=== PATIENT | female | born 1965 | race Caucasian/White ===

== ENCOUNTER 2018-12-22 20:55 | Emergency (ER) | payer OTHER ==
[~2018-12-22] VITALS: Wt 80.7 kg
[~2018-12-22 20:55] MED LIST: ALBU8.5H8 INH; FER325 PO; LORA10TA3 PO; MEDR2.5T PO
[2018-12-22] MEDS ORDERED: ONDANSETRON 4 MG INJ IV STA (21:12)
[2018-12-22] MEDS ORDERED: SOD CHLORIDE 0.9% 1,000 ML IV STA (21:12)
[2018-12-22] MEDS ORDERED: KETOROLAC 30 MG INJ IV STA (21:12)
[2018-12-22] MEDS ORDERED: IBUP800T48 PO (22:30)
[2018-12-22] MEDS ORDERED: ONDA4TAB14 PO (22:30)
--- NOTE | 2018-12-22 22:40 | ERD ---
ER Documentation Chief Complaint Chief Complaint FEVER/ VOMITING X'S 3 DAYS HPI 53-year-old female. Patient presents to the emergency with 3 days of symptoms that include generalized malaise, nonbloody nonbilious emesis, subjective fevers. She denies any cough congestion, no headache no rash no neck stiffness, no abdominal pain dysuria urgency or frequency. No recent travel sick contacts or antibiotics. During the patient's encounter translation services were utilized Language: Urdu Source: In person ROS All systems reviewed and are negative except as per history of present illness. Medications Home Meds Active Scripts Ibuprofen* (Motrin*) 800 Mg Tab, 800 MG PO Q6H PRN for PAIN AND OR ELEVATED TEMP, #30 TAB Prov:BAIRON MASON MD 12/22/18 Ondansetron (Ondansetron Odt) 4 Mg Tab.rapdis, 4 MG PO Q6H PRN for NAUSEA AND/OR VOMITING, #20 TAB Prov:BAIRON MASON MD 12/22/18 Medroxyprogesterone Acetate* (Provera*) 2.5 Mg Tablet, 2.5 MG PO DAILY for 30 Days, TAB Prov:DANIELA WILLIAMSON NP 08/17/16 Reported Medications Albuterol Sulfate* (Proair HFA*) 8.5 Gm Hfa.aer.ad, 2 PUFF INH Q4, #1 INHALER 08/16/16 Loratadine* (Loratadine*) 10 Mg Tablet, 10 MG PO DAILY, #30 TAB 08/16/16 Ferrous Sulfate* (Ferrous Sulfate*) 325 Mg Tabec, 325 MG PO DAILY, TAB 03/15/15 Allergies Allergies: Coded Allergies: No Known Allergy (Unverified , 08/16/16) PMhx/Soc History of Surgery: No Anesthesia Reaction: No Hx Neurological Disorder: No Hx Respiratory Disorders: Yes (asthma) Hx Cardiac Disorders: No Hx Psychiatric Problems: No Hx Miscellaneous Medical Probl: Yes (anemia) Hx Alcohol Use: No Hx Substance Use: No Hx Tobacco Use: No FmHx Family History: No diabetes Physical Exam Vitals Vital Signs Date Temp Pulse Resp B/P (MAP) Pulse Ox O2 O2 Flow FiO2 Time Delivery Rate 12/22/18 100.6 108 12 128/70 99 Room Air 21:17 (89) 12/22/18 101.1 114 18 153/67 98 20:58 (95) Physical Exam General: Well developed, well nourished, no acute distress Head: Normocephalic, atraumatic. Eyes: Pupils equally reactive, EOM intact ENT: Moist mucous membranes Neck: Supple, no lymphadenopathy Respiratory: Lungs clear bilaterally, no distress Cardiovascular: tachy, no murmurs, rubs, or gallops Abdominal: Soft, non-tender, non-distended, no peritoneal signs, no tenderness to McBurney's point : Deferred MSK: No edema, no unilateral swelling, 5/5 strength Neurologic: Alert and oriented, moving all extremities, normal speech, no focal weakness, no cerebellar signs, no meningismus Skin: No rash Psych: Normal mood Result Diagram: 12/22/18212012/22/182120 Results 24 hrs Laboratory Tests Test 12/22/18 21:21 White Blood Count 10.5 10^3/ul Red Blood Count 4.37 10^6/ul Hemoglobin 11.1 g/dl Hematocrit 33.6 % Mean Corpuscular Volume 76.9 fl Mean Corpuscular Hemoglobin 25.4 pg Mean Corpuscular Hemoglobin Concent 33.0 g/dl Red Cell Distribution Width 13.7 % Platelet Count 205 10^3/UL Mean Platelet Volume 10.6 fl Immature Granulocytes % 0.500 % Neutrophils % 88.2 % Lymphocytes % 4.4 % Monocytes % 6.5 % Eosinophils % 0.0 % Basophils % 0.4 % Nucleated Red Blood Cells % 0.0 /100WBC Immature Granulocytes # 0.050 10^3/ul Neutrophils # 9.2 10^3/ul Lymphocytes # 0.5 10^3/ul Monocytes # 0.7 10^3/ul Eosinophils # 0.0 10^3/ul Basophils # 0.0 10^3/ul Nucleated Red Blood Cells # 0.0 10^3/ul Sodium Level 134 mmol/L Potassium Level 3.4 mmol/L Chloride Level 99 mmol/L Carbon Dioxide Level 23 mmol/L Anion Gap 12 Blood Urea Nitrogen 12 mg/dl Creatinine 0.93 mg/dl Est Glomerular Filtrat Rate mL/min > 60 mL/min Glucose Level 160 mg/dl Calcium Level 9.1 mg/dl Current Medications Medications Dose Sig/Tip Start Time Status Last (Trade) Ordered Route PRN Stop Time Admin Dose Reason Admin Sodium 1,000 ml @ Q1H STAT 12/22/18 DC 12/22/18 Chloride 1,000 mls/hr IV 21:12 21:31 12/22/18 22:11 Ondansetron 4 mg ONCE STAT 12/22/18 DC 12/22/18 HCl (Zofran IV 21:12 21:31 Inj) 12/22/18 21:13 Ketorolac 30 mg ONCE STAT 12/22/18 DC 12/22/18 Tromethamine IV 21:12 21:31 (Toradol) 12/22/18 21:13 Procedures/MDM LAB INTERPRETATION: I reviewed the laboratory testing and it shows no evidence of acute process MEDICAL DECISION MAKING: The patient's clinical exam and presentation are very consistent with viral syndrome. The patient exhibits no focal signs or symptoms concerning for serious bacterial infection, pneumonia, acute intra-abdominal process or meningitis. Basic blood work would be appropriate to rule out anemia given the patient's history but low concern for this as well. The patient is ambulatory extremely well-appearing in the emergency room setting. ER COURSE: * Patient received IV fluids, symptom control medication and antipyretics with improved symptomatology and improved vital signs. * At this point I feel the patient can be safely discharged home. The patient was advised of return precautions and symptom control medication will be most appropriate. CONSULTATION: None DISPOSITION PLAN: The patient does not have an identifiable emergent medical condition that warrants inpatient hospitalization at this time. The patient is deemed safe for discharge with outpatient follow-up. We discussed follow up with the patient's primary care doctor within 24 to 48 hours as needed. We also discussed return to the emergency room for worsening symptoms or worsening condition. Outpatient referral: None required Discharge Medications: Motrin and Zofran Departure Diagnosis: Primary Impression: Viral syndrome Additional Impression: Nausea and vomiting Vomiting type: unspecified Vomiting Intractability: non-intractable Qualified Codes: R11.2 - Nausea with vomiting, unspecified Condition: Stable Patient Instructions: Nausea and Vomiting-Adult Additional Instructions: Llame al doctor gabino valadez (Referral Sources) MAANA y kj pelon VERONICA PARA DENTRO DE PELON SEMANA. Dgale a la secretaria que nosotros le instruimos hacer esta veronica.Avise o llame si harley condicin se empeora antes de la veronica. BAIRON MASON MD Mar 12, 2019 22:40
[2018-12-22 23:04] VITALS: BP 116/65; PULSE 83; RESP 18
== END 2018-12-22 23:04 | disposition home or self-care (01) ==
LOC: E/R 20:55
DX: B34.9 Viral infection, unspecified (principal); J45.909 Unspecified asthma, uncomplicated
CPT/HCPCS: 36415; 80048; 85025; 87400; 96361; 96374; 96375; J1885; J2405; J7030; Z7502